=== PATIENT | female | born 1935 | race Caucasian/White ===

== ENCOUNTER 2018-02-19 15:27 | Inpatient (IN) | payer MEDICARE, OTHER ==
[~2018-02-19] VITALS: Ht 167.6 cm; Wt 77.1 kg
[~2018-02-19 15:27] MED LIST: ALIGN4 MG; ARICEPT5 MG PO; ATIVAN0.5 MG PO; BUSPIRONE HCL5 MG PO; CALAMINE LOTIO177 ML TOP; COLACE100 MG PO; DIPHENOXYLATE-1 EACH; LEXAPRO20 MG PO; LIDODERM700 MG; LOVASTATIN40 MG PO; MIDODRINE HCL5 MG PO; MIRALAX17 GM PO; MULTI-VITAMIN1 EACH PO; OYSCO-500500 MG; PANTOPRAZOLE SO40 MG PO; REMERON30 MG PO; SIMETHICONE80 MG PO; TYLENOL325 MG PO; ULTRAM50 MG PO; VALIUM2 MG PO; XARELTO10 MG PO
[2018-02-19 16:44] LABS: BASOPHILS # (AUTO) 0.1 (0.0-0.1); BASOPHILS % 0.8 % (0.0-1.0); EOSINOPHILS # (AUTO) 0.2 (0.0-0.4); EOSINOPHILS % 2.8 % (0.0-6.0); HEMATOCRIT 43.2 % (34.2-44.1); HEMOGLOBIN 14.2 g/dL (12.0-16.0); LYMPHOCYTES # (AUTO) 2.3 (1.0-3.2); LYMPHOCYTES % 35.1 % (18.0-39.1); MEAN CORPUSCULAR HEMOGLOBIN 28.1 pg (28-32); MEAN CORPUSCULAR HGB CONC 32.9 g/dL (31-35); MEAN CORPUSCULAR VOLUME 85.4 fL (81-99); MONOCYTES # (AUTO) 0.5 (0.2-0.8); NEUTROPHILS # (AUTO) 3.5 (2.1-6.9); NEUTROPHILS % 53.1 % (38.7-80.0); PLATELET COUNT 126 x10e3/uL (140-360); RED BLOOD COUNT 5.06 x10e6/uL (3.6-5.1); RED CELL DISTRIBUTION WIDTH 15.9 % (11.7-14.4)
[2018-02-19 17:05] LABS: ALBUMIN 3.4 g/dL (3.5-5.0); ALBUMIN/GLOBULIN RATIO 1.1 (0.8-2.0); ANION GAP 20.7 mmol/L (8-16); CALCIUM 10.9 mg/dL (8.4-10.2); CREATININE, SERUM 1.53 mg/dL (0.57-1.11)
[2018-02-19 17:08] LABS: POTASSIUM 2.7 mmol/L (3.5-5.1)
--- NOTE | 2018-02-19 17:08 | Diagnostic Imaging Report ---
EXAMINATION: CHEST SINGLE (PORTABLE) INDICATION: Shortness of breath Her body is shutting down COMPARISON: Chest x-ray 05/30/2016 FINDINGS: AP view TUBES and LINES: None. LUNGS: Lungs are well inflated. Lungs are clear. There is no evidence of pneumonia or pulmonary edema. PLEURA: No pleural effusion or pneumothorax. HEART AND MEDIASTINUM: The cardiomediastinal silhouette is unremarkable. BONES AND SOFT TISSUES: No acute osseous lesion. Degenerative changes right AC joint. Soft tissues are unremarkable. UPPER ABDOMEN: No free air under the diaphragm. There are cholecystectomy clips. IMPRESSION: No acute thoracic abnormality. Signed by: Dr. Oscar Reddy M.D. on 02/19/2018 5:04 PM
[2018-02-19 17:11] LABS: CREATINE KINASE MB 1.2 ng/mL (0-5.0)
[2018-02-19] MEDS ORDERED: POTASSIUM CHLORIDE 10MEQ/100ML 100 ML IV ONE (17:15)
--- NOTE | 2018-02-19 17:28 | Diagnostic Imaging Report ---
History:Patient found unresponsive, awake at arrival Comparison studies:None Technique: Axial images were obtained from the skull base to the vertex. Coronal and sagittal images reconstructed from the axial data. Intravenous contrast: None Dose modulation, iterative reconstruction, and/or weight based adjustment of the mA/kV was utilized to reduce the radiation dose to as low as reasonably achievable. Findings: Scalp/skull: No abnormalities. Extra-axial spaces: No masses. No fluid collections. Brain sulci: Mildly prominent. Ventricles: Mild compensatory dilatation. No hydrocephalus. Parenchyma: Cortical-based hypodensity at the left postcentral gyrus, without significant mass effect or significant volume loss. Small chronic lacunar infarct at the right caudate head. Few hypodensities in the supratentorial white matter are small vessel ischemic changes. No masses, hemorrhage, acute or chronic cortical vascular insults. Sellar/suprasellar region: No abnormalities. Craniocervical junction: Patent foramen magnum. No Chiari one malformation. Incidental findings: Atherosclerotic calcifications in the carotid siphons . 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 No intracranial hemorrhage. Chronic findings: 1. Mild generalized volume loss. 2. Mild supratentorial white matter small vessel ischemic changes. Signed by: DR Teofilo Bliss M.D. on 02/19/2018 5:25 PM
[2018-02-19] MEDS ORDERED: POTASSIUM CHLORIDE 20 MEQ TAB CR PO NR (17:30)
[2018-02-19 17:51] LABS: CLARITY,URINE SL CLOUDY (CLEAR); KETONES,URINE TRACE (NEGATIVE); LEUKOCYTE ESTERASE ,URINE 1+ (NEGATIVE); NITRITE,URINE NEGATIVE (NEGATIVE); PROTEIN,URINE DIPSTICK TRACE (NEGATIVE); URINE UROBILINOGEN 1 mg/dL (0.2 - 1)
[2018-02-19 17:52] LABS: BILIRUBIN,URINE 3+ (NEGATIVE); COLOR,URINE STRAW (YELLOW)
[2018-02-19 18:02] LABS: AMORPHOUS SEDIMENT,URINE MODERATE (FEW); BACTERIA,URINE MODERATE /HPF; EPITHELIAL CELLS,URINE FEW /LPF
[2018-02-19] MEDS: SODIUM CHLORIDE 0.9% 1000ML 1,000 ML IV SCH ×4 (18:05→22:54)
[2018-02-19] MEDS ORDERED: SODIUM CHLORIDE FLUSH 10 ML SYR INJ PRN (18:15)
[2018-02-19] MEDS ORDERED: ONDANSETRON HCL 4 MG ORAL DISINTEGRATING TAB PO ONE (18:30)
[2018-02-19 21:02] VITALS: BP 110/78
[2018-02-20] VITALS (7 sets, daily range): BP systolic 102–126; BP diastolic 52–78
[2018-02-20 05:06] LABS: BASOPHILS % 0.5 % (0.0-1.0); EOSINOPHILS # (AUTO) 0.1 (0.0-0.4); EOSINOPHILS % 1.2 % (0.0-6.0); HEMATOCRIT 38.5 % (34.2-44.1); HEMOGLOBIN 12.9 g/dL (12.0-16.0); LYMPHOCYTES # (AUTO) 1.8 (1.0-3.2); MEAN CORPUSCULAR HEMOGLOBIN 28.6 pg (28-32); MEAN CORPUSCULAR HGB CONC 33.5 g/dL (31-35); MEAN CORPUSCULAR VOLUME 85.4 fL (81-99); MONOCYTES # (AUTO) 0.5 (0.2-0.8); MONOCYTES % 8.5 % (4.4-11.3); NEUTROPHILS # (AUTO) 3.3 (2.1-6.9); NEUTROPHILS % 58.3 % (38.7-80.0); PLATELET COUNT 93 x10e3/uL (140-360); RED BLOOD COUNT 4.51 x10e6/uL (3.6-5.1); RED CELL DISTRIBUTION WIDTH 15.7 % (11.7-14.4)
[2018-02-20 05:32] LABS: ANION GAP 19.7 mmol/L (8-16); CREATININE, SERUM 1.34 mg/dL (0.57-1.11)
[2018-02-20 05:40] LABS: POTASSIUM 2.7 mmol/L (3.5-5.1)
[2018-02-20] MEDS ORDERED: CEFTRIAXONE SOD 1 GM VIAL IV SCH (08:15)
[2018-02-20] MEDS ORDERED: POTASSIUM CHLORIDE 20MEQ/100ML 100 ML IV ONE (08:30)
[2018-02-20] MEDS: FAMOTIDINE 20 MG/2 ML VIAL IV SCH ×2 (08:31→17:11)
--- NOTE | 2018-02-20 08:47 | History and Physical ---
PCP: Dr. Abimael Greene, covering for him. CHIEF COMPLAINT: The patient was found to be unresponsive yesterday for a few minutes at assisted and hence family stent the patient to ER. HISTORY OF PRESENT MEDICAL ILLNESS: History with the help of son on phone. An 82-year-old pleasant white female with past medical history of dementia, who was admitted at [facility] last evening with above complaints. As per son, the patient has not been eating or drinking for the last 2 months and each time the patient tries to eat, she vomits up. The patient is bedbound for the last one year. The patient is progressively getting worse for last couple of months, not eating or drinking. Apparently, the patient was put on hospice for a brief period of time some time this year and then was taken off hospice. The patient was found to be unresponsive for a few minutes yesterday at assisted and hence the patient was sent to ER. In the emergency room, the patient was seen by emergency room doctor and was admitted for further care and treatment. At present, the patient is lying comfortably in bed, no apparent distress. PAST MEDICAL HISTORY 1. Dementia. 2. History of DVT of lower extremity some years back. 3. Gouty arthritis. 4. Bed bound status. MEDICATIONS: As listed in chart. ALLERGIES: CODEINE AND MORPHINE. SURGICAL HISTORY: Gallbladder surgery. SOCIAL HISTORY: No smoking. No alcohol. No illicit drug use. Bedbound status. longterm resident. FAMILY HISTORY: Noncontributory. REVIEW OF SYSTEMS: Unable to elicit as the patient has dementia. PHYSICAL EXAMINATION GENERAL: The patient is alert, awake, tries to obey verbal command, in no apparent distress, lying in bed. VITALS: Temperature is 98, pulse rate is 90 per minute, respiratory rate is 106/60, saturation is 96% on room air. SKIN: No cyanosis. No icterus. No pallor. HEENT: Normocephalic, atraumatic. PERRLA. NECK: Supple. No JVD or lymphadenopathy. LUNGS: Air entry bilaterally equal. HEART: No murmur, gallop or rub. ABDOMEN: Soft, nontender. Bowel sounds present. STEM FRAZER: Awake, moves extremities. LABS: This morning, white count 5.6, hemoglobin 12.9, hematocrit 38.5, platelets 93,000. Sodium 138, potassium 2.7, chloride 96, bicarb 25, BUN 46, creatinine 1.34, glucose 138. LFTs noted. Urine: Blood 2+, bilirubin 3+, WBC 11 to 20, RBC 6 to 10, bacteria moderate. Chest x-ray shows no acute thoracic abnormality. CT brain shows mild generalized volume loss, age indeterminate infarct at left postcentral gyrus favoured to be chronic, no intracranial hemorrhage, mild supratentorial white matter small vessel ischemic changes. ASSESSMENT 1. Adult failure to thrive. 2. Urinary tract infection. 3. History of dementia. 4. Hypokalemia. 5. Cszwm-ex-anmchbw kidney disease. PLAN: Admit the patient to med/tele. Rocephin and vancomycin will be given daily. IV fluids. Potassium replacement. Pancultures. CT abdomen and pelvis without contrast. IV Pepcid. GI consultation with Dr. Sultana. Neurology consultation, Dr. Riya Smith. Prognosis and condition guarded. Discussed with son in detail. Further care and treatment per clinical course of the patient in the hospital. Job#: [id number]
--- NOTE | 2018-02-20 09:06 | Diagnostic Imaging Report ---
PROCEDURE: CT ABDOMEN AND PELVIS WITHOUT CONTRAST TECHNIQUE: The abdomen and pelvis were scanned utilizing a multidetector helical scanner from the diaphragm to the lesser trochanter without oral contrast, as patient was vomiting and could not tolerate contrast. No IV contrast was administered per protocol. Coronal and sagittal multiplanar reformations were obtained. COMPARISON: None. INDICATIONS: VOMITING FINDINGS: ABSENCE OF INTRAVENOUS CONTRAST DECREASES SENSITIVITY FOR DETECTION OF FOCAL LESIONS AND VASCULAR PATHOLOGY. LOWER THORAX: Coronary atherosclerosis. Patchy dependent atelectasis. HEPATOBILIARY: Motion artifact limits evaluation. Incidental 1.6 cm right hepatic lobe lesion on series 2, image 14, measuring 18 HU. No biliary ductal dilatation. Status post cholecystectomy. SPLEEN: No splenomegaly. PANCREAS: No focal masses or ductal dilatation. ADRENALS: No adrenal nodules. KIDNEYS/URETERS: No hydronephrosis, stones, or solid mass lesions. There is a 1.4 cm cyst measuring 10 HU in the right lower pole on image 41. Other subcentimeter hypodensities in the right kidney are too small to characterize but likely represent cysts. PELVIC ORGANS/BLADDER: Seth catheter in a decompressed bladder. PERITONEUM / RETROPERITONEUM: No free air or fluid. LYMPH NODES: No lymphadenopathy. VESSELS: Atherosclerotic calcifications of the aorta and branch vessels. GI TRACT: No distention or wall thickening. Sigmoid diverticulosis without CT evidence of diverticulitis. Small hiatal hernia. BONES AND SOFT TISSUES: Unremarkable. IMPRESSION: No acute abnormality in the abdomen or pelvis. Incidental 1.6 cm right hepatic lobe lesion, which may represent a benign lesion such as hemangioma or complex cyst. If there is clinical concern for malignancy, a contrast enhanced CT or MRI may be considered for further evaluation. Dictated by: ROSALBA CASTELLANOS M.D. on 02/20/2018 at 9:13 Electronically approved by: ROSALBA CASTELLANOS M.D. on 02/20/2018 at 9:13
[2018-02-20] MEDS: SODIUM CHLORIDE 0.9% 1000ML 1,000 ML IV SCH ×2 (10:05→14:11)
--- NOTE | 2018-02-20 14:07 | Consultation ---
DATE OF CONSULTATION: February 20, 2018 GASTROENTEROLOGY CONSULTATION REFERRING PHYSICIAN: Dr. June North. REASON FOR CONSULTATION: Evaluation for PEG placement. HISTORY OF PRESENT ILLNESS: An 82-year-old very pleasant white female with advanced dementia, practically nonverbal now. [facility] in [facility]. She got transferred to acute care to the hospital because she has not been eating for last 4 months. She is verbally becoming more and more unresponsive. Family is concerned about her anorexia. She has advanced Alzheimer's dementia. Blood work done here revealed a normal hemoglobin, hypokalemia with potassium of 2.7, and renal insufficiency with creatinine of 1.53. Otherwise, the rest of the blood work is within acceptable limits. A urinalysis showed a urinary tract infection with WBC of 11 to 20. She is currently being treated with intravenous ceftriaxone. Urine culture as well as blood culture report pending. She used to be on Xarelto at one point of time, but she is not on that for more than [address] of the abdomen and pelvis without contrast showed no acute abnormality, incidental 1.6 cm right hepatic lesion suspicious of hemangioma or complex cyst. REVIEW OF SYSTEMS: Unobtainable. PAST MEDICAL HISTORY: Alzheimer's dementia, history of DVT, gout, bedbound status. PAST SURGICAL HISTORY: Cholecystectomy. SOCIAL HISTORY: No smoking, alcohol or any illicit drug use. senior living resident. Very supportive family. ALLERGIES: CODEINE AND MORPHINE. INPATIENT MEDICATION: Acetaminophen, bifidobacterium, buspirone, calamine/zinc suspension, calcium carbonate, diazepam, diphenoxylate/atropine, docusate, donepezil, citalopram, lorazepam, lovastatin, midodrine, mirtazapine, multivitamin, pantoprazole. Inpatient medication reviewed as per AUG. PHYSICAL EXAMINATION: VITALS: Temperature 98.8, pulse 95, respiration 20, blood pressure 102/52, oxygen saturation 96% on 2 liter of nasal cannula. GENERAL: Minimal verbally responsive. Barely opens eyes. Oral mucosa is moist. Anicteric sclerae. CVS: S1/S2, regular with a 3/6 flow murmur at the apex. LUNGS: Bilaterally grossly clear although patient has very poor inspiratory efforts. ABDOMEN: Soft, nondistended, nontender. No palpable mass or hernia. Positive bowel sounds. EXTREMITIES: Warm. Trace bilateral leg edema. LABORATORY DATA AND DIAGNOSTICS: Urinalysis showed a WBC 11 to 20 per high power field. Leukocyte is trace plus, nitrite negative. WBC 5.67, hemoglobin 12.9, hematocrit 38.5, MCV 85.4, platelet count 93. Sodium 138, potassium 2.7, chloride 96, bicarb 25, BUN 46, creatinine 1.34, glucose 133. Liver enzymes done yesterday showed AST 38, ALT 32, alkaline phosphatase 81 and total bilirubin 1.7. CT of the abdomen and pelvis without contrast showed (1) no acute abnormality in the abdomen or pelvis, (2) incidental 1.6 cm right hepatic lobe lesion, which may represent a benign lesion such as hemangioma or complex cyst. If there is a clinical concern for malignancy, a contrast-enhanced CT or MRI may be considered for further evaluation. IMPRESSION: 1. Urinary tract infection . 2. Advanced Alzheimer's dementia. This is the cause of not eating. PLAN: Continue to treat UTI with antibiotic. Follow the urine cultures. Adjust the antibiotic accordingly. Monitor her clinically to see if her mental status improves or she gets more alert after urinary tract infection is eradicated. Even after treating the urinary tract infection, if patient continues to have a poor p.o. intake, this is a normal process in dementia. Her system is shutting down. I had a detailed discussion with the patient's family. Putting the feeding gastrostomy tube is not going to improve the patient's survival or her quality of life. Oral intake progressively declines as the dementia progresses. Patient also does not feel hungry in advanced dementia. A good oral hygiene and comfort care is medically advised. If her family decides to put a feeding gastrostomy tube, then I will proceed with upper endoscopy and feeding gastrostomy tube placement. There is no contraindication to the procedure. I thank Dr. North for allowing me to participate in the care of this patient. Job#: [id number] EV
[2018-02-20 15:08] LABS: FREE THYROXINE INDEX 2.7233 (1.4-3.8)
--- NOTE | 2018-02-20 15:48 | Consultation ---
DATE OF CONSULTATION: February 20, 2018 NEUROLOGY CONSULTATION HISTORY OF PRESENT ILLNESS: Ms. Mcnally has dementia and is somnolent throughout the encounter. History is obtained from the patient's family members who were present at the bedside and review of the electronic medical records. Ms. Mcnally was admitted to [facility] on February 19, 2018, with failure to thrive. According to the patient's family members, there has been decreased oral intake (both solid and liquid) for the past 3 to 4 months. Initially, the patient "did not want to eat." More recently (i.e., the past several weeks), the patient has developed nausea and vomiting with oral intake. According to the patient's daughter, Lauren, Ms. Mcnally was diagnosed with probable dementia in May 2016. To her knowledge, Ms. Mcnally has never undergone an evaluation for dementia. The patient is receiving donepezil 5 mg by mouth at bedtime daily for dementia. According to the patient's family, when she is awake, the patient is oriented to person and place and does recognize family members. Otherwise, Ms. Mcnally is total assist in all activities of daily living. She has resided in a intermediate for the past 3 years. She has been bedbound for the past 1 year. REVIEW OF SYSTEMS: Unable to obtain secondary to the patient having dementia and being uncooperative with the examination. PAST MEDICAL HISTORY: Hyperlipidemia, osteoarthritis, multiple urinary tract infections, gastroesophageal reflux disease, depression, prior transient ischemic attack, dementia, lower extremity deep venous thrombosis. PAST SURGICAL HISTORY: Appendectomy, cholecystectomy, bilateral cataract removal. PAST HOSPITALIZATIONS: Surgeries/procedures as listed, childbirth times 4, multiple prior urinary tract infections, transient ischemic attack, falls. FAMILY MEDICAL HISTORY: The patient's paternal and maternal grandparents are . Their medical histories are unknown. The patient's father is from emphysema. Her mother from natural causes. Ms. Mcnally has 1 sister who is alive and healthy. One brother is from COPD. A 2nd sister is , probably from lung cancer. Ms. Mcnally had 4 children, 2 boys and 2 girls. One son was a stillborn. Her living son is prediabetic. Both daughters are alive. One has celiac disease. The 2nd has heart disease. SOCIAL HISTORY: The patient is a . She is retired. Ms. Mcnally's family members do not report current or prior tobacco, alcohol, or recreational drug use. HOME MEDICATIONS: Please see the list available in the electronic medical record. ALLERGIES: CODEINE, MORPHINE. NO KNOWN FOOD ALLERGIES. NO KNOWN ALLERGY TO LATEX. HOWEVER, HER FAMILY MEMBERS REPORT THE PATIENT DOES HAVE A REACTION TO THE ADHESIVE ON BAND-AIDS. NO KNOWN ALLERGIES TO IODINE OR OTHER CONTRAST MATERIALS. PHYSICAL EXAMINATION VITAL SIGNS: Height 66 inches, weight 199 pounds. BMI 32.1 kg per meter squared. Blood pressure 102/52 mmHg. Pulse is 95 beats per minute. Respiratory rate 20 breaths per minute. Oxygen saturation is 95% on 2 L by nasal cannula. GENERAL: The patient is somnolent. Upon awakening, she is combative, nonverbal. Obese. HEENT: Normocephalic and atraumatic. Pupils are surgical. Dry mucous membranes. NECK: Supple. No appreciable thyromegaly. No appreciable carotid bruits. CARDIOVASCULAR: S1, S2, regular rate and rhythm. No murmurs rubs, or gallops. RESPIRATORY: Clear to auscultation bilaterally. No wheezes, rhonchi or rales. EXTREMITIES: Tenting of the skin. The skin is warm and dry. No clubbing, cyanosis or edema. The posterior tibial and dorsalis pedis pulses are 1+ and symmetric. SKIN: No rashes or lesions. NEUROLOGIC EXAMINATION MEMORY/ATTENTION: The patient is somnolent. Upon awakening, she is combative, nonverbal. CRANIAL NERVES: Pupils are surgical. The face appears symmetric. Positive glabellar and jaw jerk reflexes. Hearing is grossly intact. STRENGTH: Bulk is normal. Ms. Mcnally withdraws all 4 extremities to peripheral noxious stimulation. Normal tone. DTRs: Unable to assess secondary to the patient being uncooperative. SENSATION: Sensation is as per motor exam. CEREBELLAR: Unable to assess secondary to the patient being uncooperative. GAIT: Deferred. Patient is bedbound. SPEECH: Nonverbal. INVOLUNTARY MOVEMENTS: None. PRONATOR DRIFT: As per motor exam. LABORATORY DATA: The patient's basic metabolic panel is significant for potassium 2.7, chloride 96, anion gap 19.7, BUN 46, creatinine 1.34, estimated GFR 38, YKP-js-prfbjbhyuz ratio of 34, and a serum glucose of 138. Liver function panel revealed an elevated total bilirubin of 1.7 and an elevated AST of 38. Otherwise, liver function appears normal. An ammonia level was 42. Cardiac enzymes are negative times 1. The CBC with differential and platelets reveals a normal white blood cell count with a normal differential. The hemoglobin and hematocrit are within normal limits. The platelet count is 93. Urinalysis was significant for trace protein, trace ketones, 2+ blood, 3+ bilirubin, 1+ leukocyte esterase, 6 to 10 red blood cells, 11 to 20 white blood cells, and moderate urine bacteria. Urine and blood cultures are pending. DIAGNOSTIC STUDIES 1. Electrocardiogram 02/19/2018: Sinus tachycardia at 114 beats per minute. 2. Electrocardiogram 02/19/2018: Sinus tachycardia at 110 beats per minute. 3. Chest x-ray, 02/19/2018: No acute thoracic abnormality. 4. CT of the brain without contrast, 02/19/2018: On my review, there appears to be a chronic infarct at the left postcentral gyrus as well as the right caudate head. There is no evidence of recent large territorial ischemia, hemorrhage, mass, or mass effect. There is diffuse cerebral atrophy with compensatory dilatation of the ventricles. There are findings compatible with mild to moderate chronic small vessel ischemic disease. 5. CT of the abdomen and pelvis, 02/20/2018: No acute abnormality in the abdomen or pelvis. Incidental 1.6-cm right hepatic lobe lesion which may represent a benign lesion such as hemangioma or complex cyst. If there is clinical concern for malignancy, a contrast-enhanced CT or MRI may be considered for further evaluation. ASSESSMENT AND PLAN: Ms. Mcnally is an 82-year-old woman with an extensive past medical history as detailed, including dementia, admitted to [facility] on February 19, 2018, with failure to thrive. Ms. Mcnally has undergone a thorough neurological examination with findings as above. Her laboratory data and other diagnostic studies have been reviewed and are documented above. According to the patient's family members, when awake, the patient is talkative, oriented to person and place and able to recognize family members. Based on the description given by the family, Ms. Mcnally appears to have mild to moderate dementia, probably of the Alzheimer's type. However, the patient is reported to be bedbound and requires total assistance with all activities of daily living. This is suggestive of advanced dementia. At present, Ms. Mcnally's neurological examination is more compatible with advanced dementia. However, the patient is dehydrated and has a urinary tract infection. Both instances may cause confusion in the elderly, and give a skewed representation of the patient's cognitive abilities. RECOMMENDATIONS 1. Additional blood work will be ordered to evaluate for other treatable causes of memory loss/cognitive impairment. This will include: Thyroid function test, vitamin B1 level, vitamin B12 level, and a rapid plasma reagin. 2. Continue hydration with intravenous fluids. 3. Continue antibiotics for the patient's urinary tract infection. 4. Ms. Mcnally will be monitored clinically for improvement over the next 24 to 48 hours. Patient's family members were informed that a lack of desire to eat or drink is often seen at the end stages of dementia. Thank you for this consultation. I will continue to follow this patient while she remains in the hospital. Time spent: 70 minutes. Job#: [id number] PAULETTE PICKENS
[2018-02-20 15:57] LABS: THYROID STIMULATING HORMONE 1.313 uIU/mL (0.350-4.940)
[2018-02-20] MEDS ORDERED: POTASSIUM CHLORIDE 20MEQ/100ML 200 ML IV ONE (16:45)
--- NOTE | 2018-02-20 17:58 | Consultation ---
DATE OF CONSULTATION: February 20, 2018 History predominantly from chart, partly from patient, partly from patient's daughter. HISTORY OF PRESENT ILLNESS: Ms. Arlen Mcnally is a delightful 82-year-old female, resident of a senior living. Renal consulted for management of acute kidney injury. She is currently awake and alert. No apparent distress. Denies any nausea, vomiting, or shortness of breath, was nauseated earlier on she claims, but she feels better now. She has extensive workup done including brain CT and CT scan of the abdomen. Chest x-ray was negative. CT scan of the brain shows mild generalized volume loss. As far as CT of the abdomen is concerned shows no hydronephrosis. Incidental 1.6 cm right hepatic lobe lesion. No acute abnormalities. Kidney and ureters; no hydronephrosis, stones, or solid mass noted. A 1.4 cm cyst in the right lower pole. She has current indwelling Seth catheter. She is currently awake, alert, and resting, several family members by bedside. ALLERGIES: TO CODEINE AND MORPHINE. CURRENT MEDICATIONS: Patient is on normal saline 125 mL an hour. She is on ceftriaxone 1 gram IV q.24h, ondansetron, received potassium chloride 1 time dose, and famotidine 20 mg IV b.i.d. SOCIAL HISTORY: Patient does not smoke or drink. She is a senior living patient. PAST MEDICAL HISTORY: Significant for appendectomy and cholecystectomy, history of probable dementia, history of prior DVT in lower extremity, history of arthritis, and history of gout. PHYSICAL EXAMINATION GENERAL: Awake, alert, lying supine. No apparent distress. VITALS: Blood pressure of 102/52, pulse rate 95, and afebrile. HEENT: Cornea clear. Oral mucosa moist. NECK: Veins flat. LUNGS: Rales noted left lower zone more than right. HEART: S1, S2 audible. ABDOMEN: Otherwise soft and nontender. EXTREMITIES: Lower extremity examination shows no edema. IMPRESSION AND PLAN 1. Acute kidney injury with a sodium of 138, potassium 2.7, bicarbonate 25. With a hemoglobin of 12.9, white count 5.67. With a bicarbonate 19.7, creatinine 1.34. 2. Total protein 6.4. 3. Underlying hypokalemia mild distal renal tubular acidosis, acute kidney injury, ATN, possible underlying renal insufficiency. We will obtain kidney ultrasound to gauge kidney size and echogenicity. Obtain a serum uric acid. Continue with IV hydration. Urine culture pending. Etiology multifactorial. Job#: [id number] ABIEL
--- NOTE | 2018-02-20 18:17 | Diagnostic Imaging Report ---
EXAMINATION: CHEST SINGLE (PORTABLE) INDICATION: \S\R/O PNEUMONIA \[id number] \S\[id number] COMPARISON: Chest radiograph 02/19/2018 FINDINGS: AP view TUBES and LINES: None. LUNGS: Lungs are well inflated. Lungs are clear. There is no evidence of pneumonia or pulmonary edema. PLEURA: No pleural effusion or pneumothorax. HEART AND MEDIASTINUM: The cardiomediastinal silhouette is unremarkable.. BONES AND SOFT TISSUES: No acute osseous lesion. Soft tissues are unremarkable. UPPER ABDOMEN: No free air under the diaphragm. IMPRESSION: No acute thoracic abnormality. Signed by: Dr. Meenu Woods M.D. on 02/20/2018 6:13 PM
[2018-02-21] VITALS (7 sets, daily range): BP systolic 102–131; BP diastolic 49–80
[2018-02-21] MEDS: SODIUM CHLORIDE 0.9% 1000ML 1,000 ML IV SCH ×2 (00:07→18:23)
[2018-02-21 05:56] LABS: BASOPHILS % 0.6 % (0.0-1.0); EOSINOPHILS # (AUTO) 0.2 (0.0-0.4); EOSINOPHILS % 3.9 % (0.0-6.0); HEMATOCRIT 37.1 % (34.2-44.1); LYMPHOCYTES # (AUTO) 1.9 (1.0-3.2); LYMPHOCYTES % 39.4 % (18.0-39.1); MEAN CORPUSCULAR HEMOGLOBIN 28.6 pg (28-32); MEAN CORPUSCULAR HGB CONC 32.3 g/dL (31-35); MONOCYTES # (AUTO) 0.3 (0.2-0.8); MONOCYTES % 6.2 % (4.4-11.3); NEUTROPHILS # (AUTO) 2.4 (2.1-6.9); NEUTROPHILS % 49.3 % (38.7-80.0); RED CELL DISTRIBUTION WIDTH 16.7 % (11.7-14.4)
[2018-02-21 06:31] LABS: MEAN CORPUSCULAR VOLUME 88.3 fL (81-99); PLATELET COUNT 70 x10e3/uL (140-360)
[2018-02-21 06:32] LABS: ALBUMIN 2.9 g/dL (3.5-5.0); ALBUMIN/GLOBULIN RATIO 1.2 (0.8-2.0); ANION GAP 19.7 mmol/L (8-16); CALCIUM 9.2 mg/dL (8.4-10.2); CREATININE, SERUM 0.96 mg/dL (0.57-1.11); MAGNESIUM 1.3 MG/DL (1.3-2.1); POTASSIUM 3.7 mmol/L (3.5-5.1)
[2018-02-21] MEDS: FAMOTIDINE 20 MG/2 ML VIAL IV SCH ×2 (09:00→17:28)
[2018-02-21 09:10] LABS: ANISOCYTOSIS SLIGHT; PLATELET ESTIMATE SLIGHTLY DECREASED; PLATELET MORPHOLOGY COMMENT NORMAL; RBC MORPHOLOGY COMMENT NORMAL
[2018-02-21] MEDS: ALLOPURINOL 300 MG TAB PO SCH (09:55)
--- NOTE | 2018-02-21 16:06 | Diagnostic Imaging Report ---
EXAMINATION: CHEST XRAY LINE PLACEMENT INDICATION: \S\LINE PLACEMENT COMPARISON: Chest radiograph 02/20/2018 FINDINGS: AP view TUBES and LINES: Interval placement of a right PICC with tip overlying the high SVC. LUNGS: Lungs are well inflated. Lungs are clear. There is no evidence of pneumonia or pulmonary edema. PLEURA: No pleural effusion or pneumothorax. HEART AND MEDIASTINUM: The cardiomediastinal silhouette is unremarkable.. BONES AND SOFT TISSUES: No acute osseous lesion. Soft tissues are unremarkable. UPPER ABDOMEN: No free air under the diaphragm. IMPRESSION: Right PICC with tip overlying the high SVC. Consider advancement of 3.5 cm. No pneumothorax. Signed by: Dr. Meenu Woods M.D. on 02/21/2018 4:02 PM
[2018-02-21] MEDS: CEFTRIAXONE SOD 1 GM VIAL IV SCH (17:28)
[2018-02-21 17:46] LABS: ANION GAP 17.7 mmol/L (8-16); BLOOD UREA NITROGEN 26 mg/dL (7-26); BUN/CREATININE RATIO 33 (6-25); CALCIUM 9.1 mg/dL (8.4-10.2); CARBON DIOXIDE 20 mmol/L (22-29); CHLORIDE 104 mmol/L (98-107); EST GLOMERULAR FILTRATION RATE > 60 ML/MIN (60-); GLUCOSE 103 mg/dL (74-118); SODIUM 139 mmol/L (136-145)
[2018-02-21 17:51] LABS: POTASSIUM 2.7 mmol/L (3.5-5.1)
[2018-02-21] MEDS ORDERED: POTASSIUM CHLORIDE 20MEQ/100ML 300 ML IV ONE (19:15)
--- NOTE | 2018-02-21 19:57 | Progress Note ---
DATE: 02/21/18 SUBJECTIVE: Patient is much more alert today. She is being fed with assistance. REVIEW OF SYSTEMS: Unobtainable as patient has underlying dementia. MEDICATIONS: Reviewed MAR. She is on intravenous ceftriaxone along with other medications and IV fluids. PHYSICAL EXAMINATION VITAL SIGNS: Temperature 97.7, pulse ranging from 117 to 109, respirations 18, blood pressure 131/49, and oxygen saturation 100% on 2 liters of nasal cannula. GENERAL: Much more alert than yesterday. Eyes open. He smiles. Does not follow verbal commands well. HEENT: Oral mucosa is moist. ABDOMEN: Soft, nondistended, and nontender. No palpable mass or hernia. Positive bowel sound. LABS: WBC has come down to 4.82 from 6.50, hemoglobin 12.0, hematocrit 37.1, MCV 88.3, platelet count 70. Sodium 139, potassium 2.7 further down from 3.7, chloride 104, bicarb 20, BUN 26, and creatinine 0.80. Urine culture report pending. Blood culture, no growth in the last 24 hours. IMPRESSION 1. Urinary tract infection has improved. Continue IV ceftriaxone. Followup urine culture, adjust antibiotic accordingly. 2. Poor oral intake due to urinary tract infection. Patient's appetite is slowly returning to baseline. 3. Dementia. 4. Hypokalemia. 5. Thrombocytopenia, I suspect underlying liver cirrhosis and portal hypertension. PLAN: Continue treating with antibiotic. Defer any PEG tube. Feed her with assistance. Correct potassium level. I suspect thrombocytopenia is likely due to underlying liver cirrhosis and portal hypertension. Given her advanced age and underlying dementia, we will just continue to monitor her clinically rather than pursuing any further investigation for cirrhosis. Job#: [id number] HALEY PICKENS
[2018-02-22 04:00] VITALS: BP 110/58
[2018-02-22] MEDS: SODIUM CHLORIDE 0.9% 1000ML 1,000 ML IV SCH (04:15)
[2018-02-22 04:44] LABS: BASOPHILS % 0.7 % (0.0-1.0); EOSINOPHILS # (AUTO) 0.2 (0.0-0.4); EOSINOPHILS % 3.8 % (0.0-6.0); HEMATOCRIT 32.6 % (34.2-44.1); HEMOGLOBIN 10.8 g/dL (12.0-16.0); LYMPHOCYTES # (AUTO) 1.4 (1.0-3.2); LYMPHOCYTES % 26.1 % (18.0-39.1); MEAN CORPUSCULAR HGB CONC 33.1 g/dL (31-35); MEAN CORPUSCULAR VOLUME 84.5 fL (81-99); MONOCYTES # (AUTO) 0.2 (0.2-0.8); MONOCYTES % 3.8 % (4.4-11.3); NEUTROPHILS # (AUTO) 3.6 (2.1-6.9); NEUTROPHILS % 65.1 % (38.7-80.0); PLATELET COUNT 72 x10e3/uL (140-360); RED BLOOD COUNT 3.86 x10e6/uL (3.6-5.1); RED CELL DISTRIBUTION WIDTH 15.8 % (11.7-14.4)
[2018-02-22 05:03] LABS: ANION GAP 19.8 mmol/L (8-16); BLOOD UREA NITROGEN 21 mg/dL (7-26); BUN/CREATININE RATIO 28 (6-25); CALCIUM 8.9 mg/dL (8.4-10.2); CARBON DIOXIDE 18 mmol/L (22-29); CHLORIDE 107 mmol/L (98-107); CREATININE, SERUM 0.76 mg/dL (0.57-1.11); EST GLOMERULAR FILTRATION RATE > 60 ML/MIN (60-); GLUCOSE 95 mg/dL (74-118); POTASSIUM 3.8 mmol/L (3.5-5.1); SODIUM 141 mmol/L (136-145)
[2018-02-22 08:20] VITALS: BP 108/58
[2018-02-22] MEDS: ALLOPURINOL 300 MG TAB PO SCH (08:56)
[2018-02-22] MEDS: FAMOTIDINE 20 MG/2 ML VIAL IV SCH ×2 (08:56→16:36)
[2018-02-22 12:33] VITALS: BP 138/69
[2018-02-22 16:19] VITALS: BP 119/63
[2018-02-22] MEDS: TRAMADOL HCL 50 MG TAB PO PRN (16:37)
[2018-02-22] MEDS: CEFTRIAXONE SOD 1 GM VIAL IV SCH (17:16)
[2018-02-22] MEDS: VANCOMYCIN 1GM/NS 250 ML 250 ML IV SCH (18:03)
[2018-02-22 20:00] VITALS: BP 164/71
[2018-02-22 20:25] VITALS: BP 164/71
[2018-02-22] MEDS: DONEPEZIL HCL 5 MG TAB PO SCH (21:00)
[2018-02-23] VITALS: BP 142/96
[2018-02-23] MEDS: ONDANSETRON HCL INJ 2 MG/ML VIAL IV PRN ×3 (02:36→17:38)
[2018-02-23 04:00] VITALS: BP 142/72
[2018-02-23 07:32] LABS: BASOPHILS % 0.6 % (0.0-1.0); EOSINOPHILS # (AUTO) 0.1 (0.0-0.4); EOSINOPHILS % 1.2 % (0.0-6.0); HEMATOCRIT 31.4 % (34.2-44.1); HEMOGLOBIN 10.8 g/dL (12.0-16.0); LYMPHOCYTES # (AUTO) 1.1 (1.0-3.2); LYMPHOCYTES % 16.2 % (18.0-39.1); MEAN CORPUSCULAR HGB CONC 34.4 g/dL (31-35); MEAN CORPUSCULAR VOLUME 84.2 fL (81-99); MONOCYTES # (AUTO) 0.2 (0.2-0.8); MONOCYTES % 2.9 % (4.4-11.3); NEUTROPHILS # (AUTO) 5.2 (2.1-6.9); NEUTROPHILS % 78.6 % (38.7-80.0); PLATELET COUNT 69 x10e3/uL (140-360); RED BLOOD COUNT 3.73 x10e6/uL (3.6-5.1); RED CELL DISTRIBUTION WIDTH 15.6 % (11.7-14.4)
[2018-02-23 07:50] LABS: ALANINE AMINOTRANSFERASE 24 IU/L (0-55); ALBUMIN 2.5 g/dL (3.5-5.0); ALBUMIN/GLOBULIN RATIO 1.1 (0.8-2.0); ALKALINE PHOSPHATASE 73 IU/L (40-150); ANION GAP 15.3 mmol/L (8-16); BLOOD UREA NITROGEN 13 mg/dL (7-26); BUN/CREATININE RATIO 17 (6-25); CALCIUM 8.5 mg/dL (8.4-10.2); CARBON DIOXIDE 19 mmol/L (22-29); CHLORIDE 105 mmol/L (98-107); CREATININE, SERUM 0.75 mg/dL (0.57-1.11); EST GLOMERULAR FILTRATION RATE > 60 ML/MIN (60-); GLUCOSE 119 mg/dL (74-118); POTASSIUM 3.3 mmol/L (3.5-5.1); SODIUM 136 mmol/L (136-145)
[2018-02-23 08:09] VITALS: BP 113/53
[2018-02-23] MEDS: VANCOMYCIN 1GM/NS 250 ML 250 ML IV SCH (08:37)
[2018-02-23] MEDS: ALLOPURINOL 300 MG TAB PO SCH (08:38)
[2018-02-23] MEDS: FAMOTIDINE 20 MG/2 ML VIAL IV SCH ×2 (08:38→17:36)
[2018-02-23] MEDS: SODIUM BICARBONATE 650 MG TAB PO SCH ×2 (08:38→17:00)
[2018-02-23] MEDS: TRAMADOL HCL 50 MG TAB PO PRN (08:38)
[2018-02-23 12:26] VITALS: BP 126/85
[2018-02-23] MEDS: SODIUM CHLORIDE 0.9% 1000ML 1,000 ML IV SCH ×2 (12:34→20:15)
--- NOTE | 2018-02-23 17:24 | Consultation ---
DATE OF CONSULTATION: REASON FOR CONSULTATION: Recommendation for antibiotic. HISTORY OF PRESENT ILLNESS: This patient who is a 82-year-old white female comes in from a [facility]. She was found unresponsive at the [facility]. Was brought to the emergency room. The patient was totally confused. She does have underlying history of dementia, history of DVT, gout, bedbound. Patient was admitted here. She was seen by neurology. Infectious disease was asked to see her today. The patient is currently confused. Family is at the bedside. The patient had no nausea, vomiting, or diarrhea. CAT scan of the brain showed generalized volume loss. CAT scan of the abdomen showed a 1.5 right hepatic lobe lesion. She was admitted with acute kidney injury and hypokalemia. Her blood culture shows coagulase-negative staph. White count 6.5, hemoglobin 10.8, and platelets 84. Sodium 136, potassium 3.3. PHYSICAL EXAMINATION GENERAL: She is alert, confused. VITAL SIGNS: No fever since admission. HEENT: She does not appear icteric. NECK: Supple. CHEST: Clear. HEART: S1 and S2. No S3, S4, or murmur. ABDOMEN: Soft. IMPRESSION 1. Bacteremia, probably contamination. No need for treatment. Can discontinue antibiotic. 2. Altered mental status, underlying history of dementia. 3. Patient is on Rocephin. Patient is DNR. Discussed with the family. Prognosis is poor. Job#: [id number] HALEY
[2018-02-23] MEDS: CEFTRIAXONE SOD 1 GM VIAL IV SCH (17:36)
[2018-02-23] MEDS: HYDROMORPHONE 2MG/ML 2 MG/ML ML IV PRN (18:20)
[2018-02-23 20:00] VITALS: BP 117/55
[2018-02-23] MEDS: DONEPEZIL HCL 5 MG TAB PO SCH (21:00)
[2018-02-24] VITALS (7 sets, daily range): BP systolic 84–105; BP diastolic 52–79
[2018-02-24] MEDS: ALLOPURINOL 300 MG TAB PO SCH (09:00)
[2018-02-24] MEDS: SODIUM BICARBONATE 650 MG TAB PO SCH (09:00)
[2018-02-24] MEDS: FAMOTIDINE 20 MG/2 ML VIAL IV SCH (09:28)
[2018-02-24] MEDS: HYDROMORPHONE 2MG/ML 2 MG/ML ML IV PRN (09:28)
[2018-02-24] MEDS ORDERED: LORAZEPAM INJ 2 MG/ML VIAL IV NR (16:45)
[2018-02-24] MEDS ORDERED: LORAZEPAM INJ 2 MG/ML VIAL IV PRN (18:00)
[2018-02-25] VITALS: BP 119/65
--- NOTE | 2018-02-25 12:18 | Diagnostic Imaging Report ---
PROCEDURE:US RETROPERITONEAL ( KIDNEY ). COMPARISON:Patients [facility], CT ABDOMEN/PELVIS WO, 02/20/2018, 8:51. INDICATIONS:dara TECHNIQUE: Case-scale and color sonographic images of the bilateral kidneys and bladder where obtained in transverse and longitudinal planes. FINDINGS: RIGHT KIDNEY: 11.1 cm, cortex 1.5 cm Cysts: Simple anechoic cyst in the mid pole measuring up to 1.7 cm; additional simple anechoic cyst in the mid pole measuring up to 1.3 cm. Solid masses: None. Stones: None. Hydronephrosis: None. Echogenicity: Unremarkable. LEFT KIDNEY: 9.9 cm, cortex 1.2 cm Cysts: Simple anechoic cyst measuring up to 1.1 cm in the mid pole. Solid masses: None. Stones: None. Hydronephrosis: None. Echogenicity: Unremarkable. Bladder: Seth catheter is present in a decompressed bladder. CONCLUSION: Bilateral simple renal cysts. Otherwise unremarkable renal ultrasound. No evidence of hydronephrosis. Dictated by: ROSALBA CASTELLANOS M.D. on 02/21/2018 at 10:51 Electronically approved by: ROSALBA CASTELLANOS M.D. on 02/21/2018 at 10:51
--- OUTSIDE RECORDS SUMMARY | 2018-03-13 07:36 | XMS REPORT ---
Author Author [facility] Address Unknown Phone Unavailable Care Team Providers Care Inside Sales Recruiter Name Role Phone LUCIA REYNA Unavailable Unavailable Problems This patient has no known problems. Allergies, Adverse Reactions, Alerts This patient has no known allergies or adverse reactions. Medications This patient has no known medications. Results Test Description Test Time Test Comments Text Results Atomic Results Result Comments CHEST XRAY LINE PLACEMENT 2018-02-21 16:00:00 [place] [address] Patient Name: TERE ROACH I MR #: [id number] : 1935 Age/Sex: 82 /F Req #: [id number] [facility] Physician: LUCIA REYNA MD Ordered by: VERONICA DOMINGUEZ, ELLA DOMINGUEZ Report #: [id number] Location: [facility] Room/ Bed: [facility] [place] Procedure: [id number] DX/CHEST XRAY LINE PLACEMENT Exam Date: Exam Time: REPORT STATUS: Signed EXAMINATION: CHEST XRAY LINE PLACEMENT INDICATION: COMPARISON: Chest radiograph 02/20/2018 FINDINGS: AP view TUBES and LINES: Interval placement of a right PICC with tip overlying the high SVC. LUNGS: Lungs are well inflated. Lungs are clear. There is no evidence of pneumonia or pulmonary edema. PLEURA: No pleural effusion or pneumothorax. HEART AND MEDIASTINUM: The cardiomediastinal silhouette is unremarkable.. BONES AND SOFT TISSUES: No acute osseous lesion. Soft tissues are unremarkable. UPPER ABDOMEN: No free air under the diaphragm. IMPRESSION: Right PICC with tip overlying the high SVC. Consider advancement of 3.5 cm. No pneumothorax. Signed by: Dr. Ravi Baca M.D. on 02/21/2018 4:02 PM Dictated By: RAVI BACA MD 160 Transcribed By: JEANETTE on 02/21/18 160 COPY TO: ELLA MARTIN RENAL RETROPERITONEAL COMP 2018-02-21 10:51:00 [place] [address] Patient Name: TERE ROACH I MR #: [id number] : 1935 Age/Sex: 82 /F Req #: [id number] Adm Physician: LUCIA REYNA MD Ordered by: VERONICA DOMINGUEZ, ELLA DOMINGUEZ Report #: [id number] Location: MED/SURG3 Room/ Bed: [facility] [place] Procedure: [id number] US/US RENAL RETROPERITONEAL COMP Exam Date: 02/21/18 Exam Time: 944 REPORT STATUS: Signed PROCEDURE: US RETROPERITONEAL ( KIDNEY ). COMPARISON: [facility], CT ABDOMEN/PELVIS WO, 02/20/2018, 8: 51. INDICATIONS: dara TECHNIQUE: Case-scale and color sonographic images of the bilateral kidneys and bladder where obtained in transverse and longitudinal planes. FINDINGS: RIGHT KIDNEY: 11.1 cm, cortex 1.5 cm Cysts: Simple anechoic cyst in the mid pole measuring up to 1.7 cm; additional simple anechoic cyst in the mid pole measuring up to 1.3 cm. Solid masses: None. Stones: None. Hydronephrosis: None. Echogenicity: Unremarkable. LEFT KIDNEY: 9.9 cm, cortex 1.2 cm Cysts: Simple anechoic cyst measuring up to 1.1 cm in the mid pole. Solid masses: None. Stones: None. Hydronephrosis: None. Echogenicity: Unremarkable. Bladder: Seth catheter is present in a decompressed bladder. CONCLUSION: Bilateral simple renal cysts. Otherwise unremarkable renal ultrasound. No evidence of hydronephrosis. Dictated by: ROSALBA CASTELLANOS M.D. on 02/21 at 10:51 Electronically approved by: ROSALBA CASTELLANOS M.D. on 2017 at 10:51 Dictated By: ROSALBA CASTELLANOS MD 105 Transcribed By: GARFIELD on 02/21/18 1051 COPY TO: ELLA MARTIN CHEST SINGLE (PORTABLE) 2018-02-20 18:13:00 [place] [address] Patient Name: TERE ROACH I MR #: [id number] : 1935 Age/Sex: 82 /F Req #: [id number] Adm Physician: LUCIA REYNA MD Ordered by: ELLA MARTIN MD, MD Report #: [id number] Location: MED/SURG3 Room/ Bed: [facility] [place] Procedure: [id number] DX/CHEST SINGLE ( PORTABLE) Exam Date: 02/20/18 Exam Time: 1720 REPORT STATUS: Signed EXAMINATION: CHEST SINGLE (PORTABLE) INDICATION: COMPARISON: Chest radiograph 02/19/2018 FINDINGS: AP view TUBES and LINES: None. LUNGS: Lungs are well inflated. Lungs are clear. There is no evidence of pneumonia or pulmonary edema. PLEURA: No pleural effusion or pneumothorax. HEART AND MEDIASTINUM: The cardiomediastinal silhouette is unremarkable.. BONES AND SOFT TISSUES: No acute osseous lesion. Soft tissues are unremarkable. UPPER ABDOMEN: No free air under the diaphragm. IMPRESSION: No acute thoracic abnormality. Signed by: Dr. Ravi Baca M.D. on 02/20/2018 6:13 PM Dictated By: RAVI BACA MD 12 Transcribed By: JEANETTE on 02/20/181812 COPY TO: ELLA MARTIN CT ABDOMEN/PELVIS WO 2018-02-20 09:13:00 [place] [address] Patient Name: TERE ROACH I MR #: [id number] : 1935 Age/Sex: 82/F Req #: [id number] Adm Physician: LUCIA REYNA MD Ordered by: LUCIA REYNA MD Report #: [id number] Location: [facility] Room/Bed: [place] [address] Procedure: CT/CT ABDOMEN/PELVIS WO Exam Date: 02/20/18 Exam Time: 829 REPORT STATUS: Signed PROCEDURE: CT ABDOMEN AND PELVIS WITHOUT CONTRAST TECHNIQUE: The abdomen and pelvis were scanned utilizing a multidetector helical scanner from the diaphragm to the lesser trochanter without oral contrast, as patient was vomiting and could not tolerate contrast. No IV contrast was administered per protocol. Coronal and sagittal multiplanar reformations were obtained. COMPARISON: None. INDICATIONS: VOMITING FINDINGS: ABSENCE OF INTRAVENOUS CONTRAST DECREASES SENSITIVITY FOR DETECTION OF FOCAL LESIONS AND VASCULAR PATHOLOGY. LOWER THORAX: Coronary atherosclerosis. Patchy dependent atelectasis. HEPATOBILIARY: Motion artifact limits evaluation. Incidental 1.6 cm right hepatic lobe lesion on series 2, image 14, measuring 18 HU. No biliary ductal dilatation. Status post cholecystectomy. SPLEEN: No splenomegaly. PANCREAS: No focal masses or ductal dilatation. ADRENALS: No adrenal nodules. KIDNEYS/URETERS: No hydronephrosis, stones, or solid mass lesions. There is a 1.4 cm cyst measuring 10 HU in the right lower pole on image 41. Other subcentimeter hypodensities in the right kidney are too small to characterize but likely represent cysts. PELVIC ORGANS/BLADDER: Seth catheter in a decompressed bladder. PERITONEUM / RETROPERITONEUM: No free air or fluid. LYMPH NODES: No lymphadenopathy. VESSELS: Atherosclerotic calcifications of the aorta and branch vessels. GI TRACT: No distention or wall thickening. Sigmoid diverticulosis without CT evidence of diverticulitis. Small hiatal hernia. BONES AND SOFT TISSUES: Unremarkable. IMPRESSION: No acute abnormality in the abdomen or pelvis. Incidental 1.6 cm right hepatic lobe lesion, which may represent a benign lesion such as hemangioma or complex cyst. If there is clinical concern for malignancy, a contrast enhanced CT or MRI may be considered for further evaluation. Dictated by: ROSALBA CASTELLANOS M.D. on 02/20/2018 at 9:13 Electronically approved by: ROSALBA CASTELLANOS M.D. on 02/20/2018 at 9:13 Dictated By: ROSALBA CASTELLANOS MD 2 Transcribed By: GARFIELD on 02/20/18912 COPY TO: LUCIA REYNA MD CT BRAIN WO 2018-02-19 17:19:00 [place] [address] Patient Name: TERE ROACH I MR #: [id number] : 1935 Age/Sex: 82/F Req #: [id number] Adm Physician: Ordered by: HARPREET TANNER MD Report #: [id number] Location: ER Room/Bed: Procedure: [id number] CT/CT BRAIN WO Exam Date: 02/19/18 Exam Time: 1640 REPORT STATUS: Signed History:Patient found unresponsive, awake at arrival Comparison studies:None Technique: Axial images were obtained from the skull base to the vertex. Coronal and sagittal images reconstructed from the axial data. Intravenous contrast: None Dose modulation, iterative reconstruction, and/or weight based adjustment of the mA/kV was utilized to reduce the radiation dose to as low as reasonably achievable. Findings: Scalp/skull: No abnormalities. Extra- axial spaces: No masses. No fluid collections. Brain sulci: Mildly prominent. Ventricles: Mild compensatory dilatation. No hydrocephalus. Parenchyma: Cortical-based hypodensity at the left postcentral gyrus, without significant mass effect or significant volume loss. Small chronic lacunar infarct at the right caudate head. Few hypodensities in the supratentorial white matter are small vessel ischemic changes. No masses, hemorrhage, acute or chronic cortical vascular insults. Sellar/suprasellar region: No abnormalities. Craniocervical junction: Patent foramen magnum. No Chiari one malformation. Incidental findings: Atherosclerotic calcifications in the carotid siphons . 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 No intracranial hemorrhage. Chronic findings: 1. Mild generalized volume loss. 2. Mild supratentorial white matter small vessel ischemic changes. Signed by: DR Teofilo Bliss M.D. on 02/19/2018 5:25 PM Dictated By: TEOFILO CRAMER MD 24 Transcribed By : JEANETTE on 02/19/18 172 COPY TO: HARPREET TANNER MD CHEST SINGLE (PORTABLE) 2018-02-19 17:02:00 [place] [address] Patient Name: TERE ROACH I MR #: [id number] : 1935 Age/Sex: 82 /F Req #: [id number] Adm Physician: Ordered by: HARPREET TANNER MD Report #: [id number] Location: ER Room/Bed: Procedure: [id number] DX/CHEST SINGLE (PORTABLE) Exam Date: Exam Time: 165 REPORT STATUS: Signed EXAMINATION: CHEST SINGLE (PORTABLE) INDICATION: Shortness of breath Her body is shutting down COMPARISON: Chest x-ray 05/30/2016 FINDINGS: AP view TUBES and LINES: None. LUNGS: Lungs are well inflated. Lungs are clear. There is no evidence of pneumonia or pulmonary edema. PLEURA: No pleural effusion or pneumothorax. HEART AND MEDIASTINUM: The cardiomediastinal silhouette is unremarkable. BONES AND SOFT TISSUES: No acute osseous lesion. Degenerative changes right AC joint. Soft tissues are unremarkable. UPPER ABDOMEN: No free air under the diaphragm. There are cholecystectomy clips. IMPRESSION: No acute thoracic abnormality. Signed by: Dr. Tono Burton M.D. on 02/19/2018 5:04 PM Dictated By: TONO BURTON MD 03 COPY TO: HARPREET TANNER MD
== END 2018-02-24 00:03 | disposition hospice, inpatient (51) | DRG 689 ==
LOC: ER 15:27 → ERHOLD 18:30 → IMCU 20:30 → OBSVTOIN 02-20 08:01 → MED/SURG3 02-20 11:39
PROVIDERS: ADMIT Internal Medicine; ATTEND Internal Medicine
PROC: 02HV33Z Insertion of Infusion Device into Superior Vena Cava, Percutaneous Approach (ICD-10-PCS; principal; 2018-02-21)
DX: N39.0 Urinary tract infection, site not specified (principal); G93.41 Metabolic encephalopathy; N17.0 Acute kidney failure with tubular necrosis; R78.81 Bacteremia; R62.7 Adult failure to thrive; N25.89 Other disorders resulting from impaired renal tubular function; K74.60 Unspecified cirrhosis of liver; E87.6 Hypokalemia; Z86.718 Personal history of other venous thrombosis and embolism; M10.9 Gout, unspecified; Z74.01 Bed confinement status; Z66 Do not resuscitate; Z88.5 Allergy status to narcotic agent; E78.5 Hyperlipidemia, unspecified; G30.9 Alzheimer's disease, unspecified; F02.80 Dementia in other diseases classified elsewhere, unspecified severity, without behavioral disturbance, psychotic disturbance, mood disturbance, and anxiety; D69.6 Thrombocytopenia, unspecified
CPT/HCPCS: 36415; 36569; 70450; 71045; 74176; 76770; 80048; 80053; 81001; 82140; 82550; 82553; 82607; 82948; 83690; 83735; 83880; 84425; 84436; 84443; 84479; 84484; 84550; 85025; 86592; 87040; 87071; 87086; 87205; 93005; 93970; 96374; 96376; 97139; 99284; G0378; J0696; J2060; J2405; J3370; J3480; J7030